=== PATIENT | male | born 1955 | race Caucasian/White ===

== ENCOUNTER 2018-04-09 22:14 | Emergency (ER) | payer MEDICARE, BC ==
[2018-04-09 22:32] VITALS: BP 163/82
[2018-04-09] MEDS ORDERED: Sodium Chloride 0.9% 10 ML Syringe FLUSH PRN (22:46)
[2018-04-09] MEDS ORDERED: Sodium Chloride 0.9% 1,000 ML IV SCH (23:00)
--- NOTE | 2018-04-10 01:03 | EDM.PDOC ---
ED HPI GENERAL MEDICAL PROBLEM - General Chief Complaint: Abdominal Pain Stated Complaint: ABDOMINAL PAIN Time Seen by Provider: 04/09/18 22:36 Source of Information: Reports: Patient History Limitations: Reports: No Limitations - History of Present Illness INITIAL COMMENTS - FREE TEXT/NARRATIVE: The patient presents with abdominal pain. This has been going on since February. The pain comes and goes and nothing makes it worse. Sometimes when he pushes on the upper abdomen that will help with the pain. This evening the pain was worse and more constant. He has no nausea, vomiting, fever, chills, cough, or chest pain. He does have some shortness of breath with the pain. He did see Dr Willingham for this and he has ordered labs and an echo that according to the patient was all normal. He is scheduled for a stress test within the week. He had a lap band procedure many years ago and something happened and he had to have it out. He has mesh in his abdominal wall for a hernia. Onset: Gradual Duration: Week(s): Location: Reports: Abdomen Quality: Reports: Sharp Severity: Moderate Improves with: Reports: None Worsens with: Reports: None Associated Symptoms: Reports: Shortness of Breath. Denies: Chest Pain, Fever/ Chills, Headaches, Nausea/Vomiting Abdominal Pain Score (Numeric/FACES): 7 - Related Data Allergies Allergy/AdvReac Type Severity Reaction Status Date / Time No Known Allergies Allergy Verified 04/09/18 22:26 Home Meds: Home Meds Allopurinol [Zyloprim] 300 mg PO DAILY 03/28/14 [History] Lisinopril 40 mg PO DAILY 03/28/14 [History] amLODIPine Besylate [Amlodipine Besylate] 10 mg PO DAILY 03/28/14 [History] Multivitamin [Men's Multi-Vitamin] 1 each PO DAILY 03/31/14 [History] Simvastatin 1 tab PO DAILY 08/10/16 [History] Metoprolol Tartrate [Lopressor] 25 mg PO Q12HR 08/31/16 [History] Aspirin [Ecotrin] 81 mg PO BID 04/10/18 [History] Cyclobenzaprine [Flexeril] 10 mg PO BEDTIME 04/10/18 [History] sulfaSALAzine [Azulfidine] 500 mg PO BID 04/10/18 [History] Past Medical History HEENT History: Reports: Sinusitis Cardiovascular History: Reports: Heart Failure, High Cholesterol, Hypertension, SD, PTCA Other Cardiovascular History: PTCA with Stents Respiratory History: Reports: Sleep Apnea Other Respiratory History: CPAP Gastrointestinal History: Reports: Gastritis, GERD, Other (See Below) Other Gastrointestinal History: abdominal pain, dysphagia Genitourinary History: Reports: Chronic Renal Insuffiency Musculoskeletal History: Reports: Back Pain, Chronic, Gout Other Musculoskeletal History: degenerative joint disease, back pain Endocrine/Metabolic History: Reports: Obesity/BMI 30+, Vitamin D Deficiency Dermatologic History: Reports: Other (See Below) Other Dermatologic History: psoriatic arthritis - Past Surgical History Cardiovascular Surgical History: Reports: Other (See Below) GI Surgical History: Reports: Appendectomy, Bariatric Procedure, Cholecystectomy , Colonoscopy, Hernia Repair/Other, Other (See Below) Musculoskeletal Surgical History: Reports: Other (See Below) Social & Family History - Tobacco Use Smoking Status *Q: Never Smoker - Recreational Drug Use Recreational Drug Use: No ED ROS GENERAL - Review of Systems Review Of Systems: See Below Constitutional: Reports: No Symptoms HEENT: Reports: No Symptoms Respiratory: Reports: Shortness of Breath Cardiovascular: Reports: No Symptoms Endocrine: Reports: No Symptoms GI/Abdominal: Reports: Abdominal Pain. Denies: Diarrhea, Nausea, Vomiting ED EXAM, GI/ABD - Physical Exam Exam: See Below Exam Limited By: No Limitations General Appearance: Alert, No Apparent Distress Ears: Normal External Exam Nose: Normal Inspection Head: Atraumatic, Normocephalic Neck: Normal Inspection Respiratory/Chest: No Respiratory Distress, Lungs Clear, Normal Breath Sounds Cardiovascular: Regular Rate, Rhythm, No Edema, No Murmur GI/Abdominal Exam: Soft, Non-Tender, No Organomegaly, No Mass, Other (patient has multiple scars on his abdominal wall. I do not feel any hernias.) Back Exam: Normal Inspection Extremities: Normal Inspection Neurological: Alert, Oriented, No Motor/Sensory Deficits Course - Vital Signs Last Recorded V/S: Last Vital Signs Temp 99.4 F 04/09/18 22:26 Pulse 99 04/09/18 22:26 Resp 18 04/09/18 22:26 BP 163/82 H 04/09/18 22:26 Pulse Ox 96 04/09/18 22:26 - Orders/Labs/Meds Orders: Active Orders 24 hr Category Date Time Status Peripheral IV Care [RC] . DIRECTED Care 04/09/18 22:46 Active Abdomen Pelvis w Cont [CT] Stat Exams 04/09/18 22:46 Taken UA W/MICROSCOPIC [URIN] Stat Lab 04/09/18 23:25 Ordered Peripheral IV Insertion Adult [OM.PC] Stat Oth 04/09/18 22:46 Ordered Labs: Laboratory Tests 04/09/18 04/09/18 04/09/18 Range/Units 22:55 22:55 23:25 WBC 6.21 (4.23-9.07) K/mm3 RBC 4.56 L (4.63-6.08) M/mm3 Hgb 14.8 (13.7-17.5) gm/L Hct 43.1 (40.1-51.0) % MCV 94.5 H (79.0-92.2) fl MCH 32.5 H (25.7-32.2) pg MCHC 34.3 (32.2-35.5) g/dl RDW Std Deviation 49.0 H (35.1-43.9) fL Plt Count 174 (163-337) K/mm3 MPV 9.7 (9.4-12.3) fl Neut % (Auto) 66.6 (34.0-67.9) % Lymph % (Auto) 19.0 L (21.8-53.1) % Story % (Auto) 11.9 (5.3-12.2) % Eos % (Auto) 1.9 (0.8-7.0) Baso % (Auto) 0.3 (0.1-1.2) % Neut # (Auto) 4.13 (1.78-5.38) K/mm3 Lymph # (Auto) 1.18 L (1.32-3.57) K/mm3 Story # (Auto) 0.74 (0.30-0.82) K/mm3 Eos # (Auto) 0.12 (0.04-0.54) K/mm3 Baso # (Auto) 0.02 (0.01-0.08) K/mm3 Sodium 142 (136-145) mEq/L Potassium 3.6 (3.5-5.1) mEq/L Chloride 106 (98-107) mEq/L Carbon Dioxide 26 (21-32) mEq/L Anion Gap 13.6 (5-15) BUN 11 (7-18) mg/dL Creatinine 1.2 (0.7-1.3) mg/dL Est Cr Clr Drug Dosing 65.06 mL/min Estimated GFR (MDRD) > 60 (>60) mL/min BUN/Creatinine Ratio 9.2 L (14-18) Glucose 162 H (80-115) mg/dL Calcium 9.0 (8.5-10.1) mg/dL Total Bilirubin 0.4 (0.2-1.0) mg/dL AST 32 (15-37) U/L ALT 41 (16-63) U/L Alkaline Phosphatase 68 (46-116) U/L Total Protein 6.7 (6.4-8.2) g/dl Albumin 3.6 (3.4-5.0) g/dl Globulin 3.1 gm/dL Albumin/Globulin Ratio 1.2 (1-2) Lipase 150 (73-393) U/L Urine Color Yellow (Yellow) Urine Appearance Clear (Clear) Urine pH 6.5 (5.0-8.0) Ur Specific [place] 1.015 (1.005-1.030) Urine Protein Negative (Negative) Urine Glucose (UA) Negative (Negative) Urine Ketones Negative (Negative) Urine Occult Blood Negative (Negative) Urine Nitrite Negative (Negative) Urine Bilirubin Negative (Negative) Urine Urobilinogen 0.2 (0.2-1.0) Ur Leukocyte Esterase Negative (Negative) Urine RBC Not seen (0-5) /hpf Urine WBC Not seen (0-5) /hpf Ur Epithelial Cells Not seen (0-5) /hpf Urine Bacteria Rare (FEW) /hpf Urine Mucus Few (FEW) /hpf Meds: Medications Discontinued Medications Generic Name Dose Route Start Last Admin Trade Name Freq PRN Reason Stop Dose Admin Sodium Chloride 1,000 mls @ 125 mls/hr 04/09/18 23:00 04/09/18 22:55 Normal Saline IV 125 mls/hr ASDIRECTED BHAVNA Administration Sodium Chloride 10 ml 04/09/18 22:46 04/09/18 22:55 Saline Flush FLUSH 10 ml ASDIRECTED PRN Administration Keep Vein Open - Re-Assessments/Exams Free Text/Narrative Re-Assessment/Exam: 04/10/18 01:03 I ordered an IV NS at 125mL/hr, labs, UA and a CT of his abdomen and pelvis. 04/10/18 05:21 His CBC and CMP look good. His UA is negative for UTI. His CT shows nothing acute. I am not sure why he is getting the pain. He may be having some muscle cramping that comes and goes. I will have him follow up with his primary care. Departure - Departure Time of Disposition: 05:25 Disposition: Home, Self-Care 01 Condition: Good Clinical Impression: Abdominal pain Qualifiers: Abdominal location: generalized Qualified Code(s): R10.84 - Generalized abdominal pain - Discharge Information Referrals: Po Willingham MD [Primary Care Provider] - Forms: ED Department Discharge Additional Instructions: Take your medication as prescribed. Follow up with Dr Willingham. Please return if you are worse. - My Orders Last 24 Hours: My Active Orders 04/09/18 22:46 Peripheral IV Care [RC] . DIRECTED Abdomen Pelvis w Cont [CT] Stat Peripheral IV Insertion Adult [OM.PC] Stat 04/09/18 23:25 UA W/MICROSCOPIC [URIN] Stat - Assessment/Plan Last 24 Hours: My Active Orders 04/09/18 22:46 Peripheral IV Care [RC] . DIRECTED Abdomen Pelvis w Cont [CT] Stat Peripheral IV Insertion Adult [OM.PC] Stat 04/09/18 23:25 UA W/MICROSCOPIC [URIN] Stat
--- NOTE | 2018-04-10 08:32 | CT ---
CT abdomen and pelvis Technique: Multiple axial sections were obtained from above the dome of the diaphragm inferiorly through the pubic symphysis. Intravenous and oral contrast has been given. Delayed images were also obtained through the abdomen and pelvis. Comparison: Prior CT abdomen and pelvis exam of 12/03/14. Findings: Visualized lung bases show nothing acute. Liver shows no focal parenchymal abnormality. Spleen appears within normal limits. Adrenal glands show no nodule. Pancreas is within normal limits. Surgical clips are seen from prior cholecystectomy. Kidneys show symmetric contrast enhancement without hydronephrosis or mass. Aorta shows no aneurysmal dilatation. No retroperitoneal adenopathy or mesenteric abnormalities are seen. No pelvic mass or adenopathy is seen. Delayed images show contrast excretion from both kidneys. Right and left ureters show no dilatation. Contrast is identified within the bladder. Bone window settings show diffuse degenerative change throughout the spine. Evidence of graft material within the anterior abdominal wall above the umbilicus. Impression: 1. Incidental findings. Nothing acute is identified on CT study of the abdomen and pelvis. No significant change is appreciated from prior CT exam. Diagnostic code #2 I agree with preliminary report from [facility], finalized at 04/10/18, 2:53 AM Central Time
== END 2018-04-10 02:08 | disposition home or self-care (01) ==
LOC: JD.ED 22:14
DX: R10.84 Generalized abdominal pain (principal); E78.00 Pure hypercholesterolemia, unspecified; Z79.82 Long term (current) use of aspirin; Z79.899 Other long term (current) drug therapy
CPT/HCPCS: 36415; 74177; 80053; 81001; 83690; 85025; 96360; 96361; 99284; J7040; J7050